=== PATIENT | male | born 1990 | race Two or more races ===

== ENCOUNTER 2018-12-13 11:58 | Emergency (ER) | payer OTHER ==
[2018-12-13 12:08] VITALS: BP 117/75; PULSE 74; TEMP 98.5; BMI 24.3
--- NOTE | 2018-12-13 12:37 | PDOC ---
History of Present Illness - General Chief Complaint: Cold Symptoms Stated Complaint: Cold Symptoms Time Seen by Provider: 12/13/18 12:15 History Source: Patient Exam Limitations: No Limitations Past History - Past Medical History Allergies/Adverse Reactions: Allergies Allergy/AdvReac Type Severity Reaction Status Date / Time No Known Allergies Allergy Verified 12/13/18 12:05 Home Medications: Ambulatory Orders NK [No Known Home Medication] 12/13/18 Anemia: Yes (sickle cell) COPD: No - Surgical History Abdominal Surgery: No GI Surgery: Yes (ABD hernia) - Immunization History Immunization Up to Date: No - Suicide/Smoking/Psychosocial Hx Smoking History: Never smoked Have you smoked in the past 12 months: No Number of Cigarettes Smoked Daily: 2 'Breaking Loose' booklet given: 06/25/18 Hx Alcohol Use: No Drug/Substance Use Hx: No Substance Use Type: None *Physical Exam - Vital Signs Last Vital Signs Temp Pulse Resp BP Pulse Ox 98.5 F 74 15 117/75 100 12/13/18 12:06 12/13/18 12:06 12/13/18 12:06 12/13/18 12:06 12/13/18 12:06 - Physical Exam General Appearance: No: Apparent Distress HEENT: positive: Pharynx Normal. negative: Muffled/Hoarse voice, Pharyngeal Erythema, Tonsillar Exudate, Tonsillar Erythema, Nasal Congestion, Rhinorrhea Respiratory/Chest: positive: Lungs Clear, Normal Breath Sounds. negative: Respiratory Distress Cardiovascular: positive: Regular Rhythm, Regular Rate, S1, S2. negative: Murmur Gastrointestinal/Abdominal: positive: Normal Bowel Sounds, Soft. negative: Tender, Distended, Guarding, Rebound Integumentary: positive: Normal Color Neurologic: positive: Alert, Normal Mood/Affect Moderate Sedation - Procedure Monitoring Vital Signs: Procedure Monitoring Vital Signs Temperature 98.5 F 12/13/18 12:06 Pulse Rate 74 12/13/18 12:06 Respiratory Rate 15 12/13/18 12:06 Blood Pressure 117/75 12/13/18 12:06 O2 Sat by Pulse Oximetry (%) 100 12/13/18 12:06 Medical Decision Making - Medical Decision Making 28 y/o M with no sig pmh presents with subjective fever, productive cough with yellow phlegm, body aches, chest pain with cough x 3 days. Patient never checked his temperature. Has been taking Theraflu without relief of sxs. Denies ear pain, sore throat, abd pain, n/v/d. Patient afebrile here; patient has not taken any Tylenol or Motrin today Patient otherwise appears well Likely viral syndrome stable for dc 12/13/18 12:30 *DC/Admit/Observation/Transfer Diagnosis at time of Disposition: Viral URI - Discharge Dispostion Disposition: HOME Condition at time of disposition: Stable Decision to Admit order: No - Referrals Referrals: Kiet Arriola [Primary Care Provider] - 3 days - Patient Instructions Printed Discharge Instructions: DI for Viral Upper Respiratory Infection -- Adult - Post Discharge Activity
== END 2018-12-13 12:42 | disposition home or self-care (01) ==
LOC: JERFT 11:58
DX: J06.9 Acute upper respiratory infection, unspecified (principal); B97.89 Other viral agents as the cause of diseases classified elsewhere
CPT/HCPCS: 99281-25

== ENCOUNTER 2019-03-22 02:15 | Emergency (ER) | payer OTHER ==
[2019-03-22 03:00] VITALS: BMI 24.3
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
[2019-03-22] MEDS ORDERED: morphine CARPU-JECT 4 MG/1 ML DISP.SYRIN IVPUSH ONE (06:43)
[2019-03-22] MEDS ORDERED: morphine SULFATE 4 MG/ML VIAL ONE (06:45)
[2019-03-22 07:15] VITALS: BP 121/95; PULSE 78; TEMP 98.6
== END 2019-03-22 07:00 | disposition short-term general hospital (02) ==
LOC: JER 02:15
PROC: 3E033NZ Introduction of Analgesics, Hypnotics, Sedatives into Peripheral Vein, Percutaneous Approach (ICD-10-PCS; principal; 2019-03-22)
DX: S02.32XA Fracture of orbital floor, left side, initial encounter for closed fracture (principal); Y04.2XXA Assault by strike against or bumped into by another person, initial encounter; Y93.89 Activity, other specified; Y92.89 Other specified places as the place of occurrence of the external cause; Y99.8 Other external cause status; Y07.9 Unspecified perpetrator of maltreatment and neglect
CPT/HCPCS: 70450-TC; 70486-TC; 72125-TC; 96374; 99283-25